=== PATIENT | male | born 1985 | race Caucasian/White ===

== ENCOUNTER 2022-02-22 21:22 | Emergency (ER) | payer SELFPAY ==
[2022-02-22 21:28] VITALS: BMI 30.1
[2022-02-22] MEDS ORDERED: IBUPROFEN 600 MG TABLET (FP) PO ONE ×2 (21:30→21:37)
[2022-02-22 22:17] VITALS: BP 137/93; PULSE 95; TEMP 99.3
== END 2022-02-22 22:16 | disposition home or self-care (01) ==
LOC: FER 21:22
DX: S93.412A Sprain of calcaneofibular ligament of left ankle, initial encounter (principal); V00.141A Fall from scooter (nonmotorized), initial encounter
CPT/HCPCS: 73610-TC-LT-FY; 99283-25